=== PATIENT | male | born 1940 | race Caucasian/White ===

== ENCOUNTER 2017-10-15 10:05 | Emergency (ER) | payer MEDICARE ==
[~2017-10-15] VITALS: Ht 175.3 cm; Wt 61.1 kg
[~2017-10-15 10:05] MED LIST: TRAZ100T15 PO; TRAZ150T62 PO; ZOLP10TA PO
[2017-10-15 13:15] LABS: MICROSCOPIC INDICATED
[2017-10-15 13:26] LABS: CULTURE INDICATED? YES
[2017-10-15 14:02] VITALS: BP 122/75
== END 2017-10-15 14:04 | disposition home or self-care (01) ==
LOC: ED 11:26
DX: R31.0 Gross hematuria (principal); N30.01 Acute cystitis with hematuria; Z85.46 Personal history of malignant neoplasm of prostate
CPT/HCPCS: 81001; 87086; 99284

== ENCOUNTER 2018-12-29 11:34 | Emergency (ER) | payer MEDICARE ==
[~2018-12-29] VITALS: Ht 175.3 cm; Wt 61.0 kg
[~2018-12-29 11:34] MED LIST changes: +TRAZ-137 PO; -TRAZ100T15 PO
[2018-12-29 11:35] VITALS: BP 130/76
--- NOTE | 2018-12-29 11:50 | NUR ---
PT PRESENTING FOR BLOOD IN URINE WITH CLOTS AND PAINFUL URINATION X2 WEEKS. STATES HAD THIS HAPPEN LAST YEAR NEEDED SCHUMACHER PLACED AND NEVER FOLLOWED UP, HX OF TERP AND PROSTATE ISSUES. ALSO PT REPORTING INCREASED SOB X1 MONTH. STILL SMOKES ALSO HASNT F/U. CONNECTED TO MONITORING, VSS. CALL LIGHT WITHIN REACH. AWAITING ORDERS AT THIS TIME
--- NOTE | 2018-12-29 12:02 | NUR ---
UA COLLECTED AND SENT TO LAB. POST RESIDUAL 85ML. LAB AT BEDSIDE. TECH AT BEDSIDE TO EKG. AWAITING TESTING AND RESULTS AT THIS TIME. CALL LIGHT WITHIN REACH
[2018-12-29 12:11] LABS: BASOPHILS # (AUTO) 0.03 x10^3/uL (0-0.1); BASOPHILS % (AUTO) 0 % (0-1); EOSINOPHILS # (AUTO) 0.12 x10^3/uL (0-0.4); EOSINOPHILS % (AUTO) 1 % (1-7); LYMPHOCYTES # (AUTO) 1.01 x10^3/uL (1-3.4); LYMPHOCYTES % (AUTO) 12 % (22-44); MD NO; MEAN CORPUSCULAR HEMOGLOBIN 32.2 pg (27.5-34.5); MEAN CORPUSCULAR HGB CONC 33.6 g/dL (33.2-36.2); MEAN CORPUSCULAR VOLUME 95.7 fL (81-97); MEAN PLATELET VOLUME 6.8 fL (7.4-10.4); MONOCYTES # (AUTO) 0.76 x10^3/uL (0.2-0.8); MONOCYTES % (AUTO) 9 % (2-9); NEUTROPHILS # (AUTO) 6.63 x10^3/uL (1.8-6.8); NEUTROPHILS % (AUTO) 78 % (42-75); PLATELET COUNT 327 x10^3/uL (130-400); RED BLOOD COUNT 4.89 x10^6/uL (4.38-5.82); RED CELL DISTRIBUTION WIDTH 13.5 % (9.4-14.8)
--- NOTE | 2018-12-29 12:16 | NUR ---
PT BACK FROM RAD
[2018-12-29 12:19] LABS: INTERNATIONAL NORMALIZED RATIO 1.02 (0.93-1.1); PROTHROMBIN TIME 10.7 Seconds (9.6-11.5)
[2018-12-29 12:20] LABS: ALBUMIN 3.8 g/dL (3.4-5.0); ANION GAP 5 mmol/L (5-15); CALCIUM 8.7 mg/dL (8.5-10.1); CHLORIDE 107 mmol/L (98-107); CREATININE 0.83 mg/dL (0.7-1.3)
[2018-12-29 12:27] LABS: MICROSCOPIC AUTO
[2018-12-29 12:31] LABS: CULTURE INDICATED? YES
--- NOTE | 2018-12-29 12:39 | NUR ---
ALL RESULTS BACK AT THIS TIME, CHART UP FOR RECHECK
--- NOTE | 2018-12-29 12:50 | NUR ---
MD TO BEDSIDE TO UPDATE PT ON POC
== END 2018-12-29 13:05 | disposition home or self-care (01) ==
LOC: ED 12:18
DX: N30.01 Acute cystitis with hematuria (principal); J43.9 Emphysema, unspecified; F17.200 Nicotine dependence, unspecified, uncomplicated
CPT/HCPCS: 36415; 71046; 80048; 81001; 82040; 83880; 85025; 85610; 85730; 87086; 93005; 99284

== ENCOUNTER 2019-01-07 18:38 | Emergency (ER) | payer MEDICARE ==
[2019-01-07 18:42] VITALS: BP 175/94
--- NOTE | 2019-01-07 18:50 | NUR ---
PT TO ROOM FROM LOBBY.
[2019-01-07 19:03] LABS: BASOPHILS # (AUTO) 0.03 x10^3/uL (0-0.1); BASOPHILS % (AUTO) 0 % (0-1); EOSINOPHILS # (AUTO) 0.29 x10^3/uL (0-0.4); EOSINOPHILS % (AUTO) 3 % (1-7); LYMPHOCYTES # (AUTO) 1.46 x10^3/uL (1-3.4); LYMPHOCYTES % (AUTO) 17 % (22-44); MD NO; MEAN CORPUSCULAR HEMOGLOBIN 32.6 pg (27.5-34.5); MEAN CORPUSCULAR HGB CONC 33.9 g/dL (33.2-36.2); MEAN CORPUSCULAR VOLUME 96.3 fL (81-97); MONOCYTES # (AUTO) 0.88 x10^3/uL (0.2-0.8); MONOCYTES % (AUTO) 11 % (2-9); NEUTROPHILS # (AUTO) 5.75 x10^3/uL (1.8-6.8); NEUTROPHILS % (AUTO) 68 % (42-75); PLATELET COUNT 350 x10^3/uL (130-400); RED BLOOD COUNT 4.95 x10^6/uL (4.38-5.82); RED CELL DISTRIBUTION WIDTH 13.7 % (9.4-14.8)
[2019-01-07 19:12] LABS: ALANINE AMINOTRANSFERASE 25 U/L (12-78); ALBUMIN 4.1 g/dL (3.4-5.0); ANION GAP 5 mmol/L (5-15); CALCIUM 8.8 mg/dL (8.5-10.1); CHLORIDE 108 mmol/L (98-107)
[2019-01-07 19:14] LABS: ALKALINE PHOSPHATASE 76 U/L (45-117); BILIRUBIN,TOTAL 0.3 mg/dL (0.2-1.0); TOTAL PROTEIN 7.9 g/dL (6.4-8.2)
[2019-01-07] MEDS ORDERED: LIDOCAINE 2%,20 ML JEL.PF.APP MM ONE (19:16)
--- NOTE | 2019-01-07 19:41 | NUR ---
SCHUMACHER PLACED PER ORDER. PT TOLERATED PROCEDURE WELL. POC DISCUSSED. UA TUBED TO LAB. PT GIVEN [facility] BLANKETS PER REQUEST.
[2019-01-07 19:53] LABS: MICROSCOPIC AUTO
--- NOTE | 2019-01-07 19:53 | NUR ---
PT TO CT NOW
[2019-01-07 19:54] LABS: CULTURE INDICATED? YES
== END 2019-01-07 21:48 ==
LOC: ED 21:45
DX: N40.1 Benign prostatic hyperplasia with lower urinary tract symptoms (principal); R33.8 Other retention of urine; R10.30 Lower abdominal pain, unspecified; J44.9 Chronic obstructive pulmonary disease, unspecified
CPT/HCPCS: 36415; 51702; 74176; 80053; 81001; 85025; 87086; 99284

== ENCOUNTER → 2019-02-18 | Outpatient (CLI) | payer MEDICARE ==
[~2019-02-18] MED LIST changes: +IPRA4AER INH; +TAMS-11 PO
[2019-02-18 08:56] LABS: MICROSCOPIC INDICATED
== END | disposition home or self-care (01) ==
LOC: STAR 07:23
PROVIDERS: ATTEND Urology
DX: Z01.818 Encounter for other preprocedural examination (principal); D41.4 Neoplasm of uncertain behavior of bladder; R82.998 Other abnormal findings in urine
CPT/HCPCS: 81001; 87086; 93005

== ENCOUNTER 2019-03-02 11:33 | Inpatient (IN) | payer MEDICARE ==
[2019-02-18 08:10] VITALS: BP 141/78
[~2019-03-02] VITALS: Ht 172.7 cm; Wt 63.6 kg
[2019-03-02] MEDS ORDERED: LACTATED RINGERS 1,000 ML IV SCH (12:26)
[2019-03-02 14:28] LABS: BASOPHILS # (AUTO) 0.02 x10^3/uL (0-0.1); BASOPHILS % (AUTO) 0 % (0-1); EOSINOPHILS # (AUTO) 0.44 x10^3/uL (0-0.4); EOSINOPHILS % (AUTO) 6 % (1-7); LYMPHOCYTES # (AUTO) 1.14 x10^3/uL (1-3.4); LYMPHOCYTES % (AUTO) 15 % (22-44); MD NO; MEAN CORPUSCULAR HGB CONC 33.2 g/dL (33.2-36.2); MEAN CORPUSCULAR VOLUME 96.4 fL (81-97); MEAN PLATELET VOLUME 7.1 fL (7.4-10.4); MONOCYTES % (AUTO) 9 % (2-9); NEUTROPHILS # (AUTO) 5.12 x10^3/uL (1.8-6.8); NEUTROPHILS % (AUTO) 69 % (42-75); PLATELET COUNT 267 x10^3/uL (130-400); RED BLOOD COUNT 4.96 x10^6/uL (4.38-5.82); RED CELL DISTRIBUTION WIDTH 13.3 % (9.4-14.8)
[2019-03-02] MEDS ORDERED: ALBUTEROL/IPRATROPIUM 2.5MG/0.5MG, 3 ML ONE (14:30)
[2019-03-02] MEDS: ALBUTEROL/IPRATROPIUM 2.5MG/0.5MG, 3 ML NPPB SCH ×2 (14:36→19:30)
[2019-03-02 14:41] LABS: ALANINE AMINOTRANSFERASE 16 U/L (12-78); ALBUMIN 3.8 g/dL (3.4-5.0); ANION GAP 9 mmol/L (5-15); CALCIUM 8.9 mg/dL (8.5-10.1); CHLORIDE 110 mmol/L (98-107)
[2019-03-02 14:47] LABS: BILIRUBIN,TOTAL 0.6 mg/dL (0.2-1.0); CREATININE 0.78 mg/dL (0.7-1.3); TOTAL PROTEIN 7.3 g/dL (6.4-8.2); TROPONIN I < 0.015 ng/mL (0.000-0.045)
[2019-03-02 14:50] LABS: ALKALINE PHOSPHATASE 69 U/L (45-117)
[2019-03-02 15:39] VITALS: BP 117/70
[2019-03-02] MEDS: NICOTINE 14MG/24 HR PATCH.TD24 TD SCH (15:59)
[2019-03-02] MEDS ORDERED: POLYETHYLENE GLYCOL 17 GM PACKET PO PRN (16:00)
[2019-03-02] MEDS ORDERED: ONDANSETRON 2MG/ML, 2ML IVPush PRN (16:00)
[2019-03-02] MEDS ORDERED: GUAIFENESIN/DM 200-20MG, 10ML UDC PO PRN (16:00)
[2019-03-02] MEDS ORDERED: ONDANSETRON ODT 4 MG PO PRN (16:00)
[2019-03-02] MEDS ORDERED: DOCUSATE 100 MG CAPSULE PO PRN (16:00)
[2019-03-02] MEDS: methylPREDNISolone SOD SUCC 125 MG/2 ML IVPush SCH (16:25)
[2019-03-02] MEDS: ENOXAPARIN 40 MG/0.4 ML SQ SCH (16:26)
[2019-03-02 19:07] LABS: TROPONIN I < 0.015 ng/mL (0.000-0.045)
[2019-03-02 19:33] VITALS: BP 105/62
[2019-03-02] MEDS: DOXYCYCLINE 100MG TABLET PO SCH (21:02)
[2019-03-02] MEDS: TRAZODONE 150MG TABLET PO SCH (21:02)
[2019-03-03] MEDS: methylPREDNISolone SOD SUCC 125 MG/2 ML IVPush SCH ×3 (00:26→16:21)
[2019-03-03 00:55] LABS: TROPONIN I < 0.015 ng/mL (0.000-0.045)
[2019-03-03 01:23] VITALS: BP 108/64
[2019-03-03 06:28] LABS: TROPONIN I < 0.015 ng/mL (0.000-0.045)
[2019-03-03] MEDS: ALBUTEROL/IPRATROPIUM 2.5MG/0.5MG, 3 ML NPPB SCH ×4 (06:51→19:21)
[2019-03-03 07:14] VITALS: BP 116/67
[2019-03-03] MEDS: DOXYCYCLINE 100MG TABLET PO SCH ×2 (08:19→20:43)
[2019-03-03] MEDS ORDERED: REGADENOSON 0.4 MG/5 ML SYRINGE ONE (08:46)
[2019-03-03 15:45] VITALS: BP 104/58
[2019-03-03] MEDS: ENOXAPARIN 40 MG/0.4 ML SQ SCH (16:00)
[2019-03-03] MEDS: NICOTINE 14MG/24 HR PATCH.TD24 TD SCH (16:00)
[2019-03-03] MEDS: ACETAMINOPHEN 325 MG TABLET PO PRN (17:26)
[2019-03-03 19:08] VITALS: BP 95/54
[2019-03-03] MEDS: TRAZODONE 150MG TABLET PO SCH (20:43)
[2019-03-03 20:44] VITALS: BP 109/57
[2019-03-04] MEDS: methylPREDNISolone SOD SUCC 125 MG/2 ML IVPush SCH ×3 (00:41→16:31)
[2019-03-04 00:48] VITALS: BP 135/62
[2019-03-04 06:14] LABS: ANION GAP 6 mmol/L (5-15); CALCIUM 8.6 mg/dL (8.5-10.1); CHLORIDE 108 mmol/L (98-107); CREATININE 1.01 mg/dL (0.7-1.3)
[2019-03-04 06:15] LABS: BASOPHILS % (AUTO) 0 % (0-1); EOSINOPHILS % (AUTO) 0 % (1-7); LYMPHOCYTES # (AUTO) 0.46 x10^3/uL (1-3.4); LYMPHOCYTES % (AUTO) 3 % (22-44); MD NO; MEAN CORPUSCULAR HEMOGLOBIN 32.3 pg (27.5-34.5); MEAN CORPUSCULAR HGB CONC 33.1 g/dL (33.2-36.2); MEAN CORPUSCULAR VOLUME 97.7 fL (81-97); MEAN PLATELET VOLUME 7.8 fL (7.4-10.4); MONOCYTES % (AUTO) 3 % (2-9); NEUTROPHILS # (AUTO) 13.86 x10^3/uL (1.8-6.8); NEUTROPHILS % (AUTO) 94 % (42-75); PLATELET COUNT 261 x10^3/uL (130-400); RED BLOOD COUNT 4.34 x10^6/uL (4.38-5.82); RED CELL DISTRIBUTION WIDTH 13.2 % (9.4-14.8)
[2019-03-04 07:45] VITALS: BP 111/57
[2019-03-04] MEDS: ALBUTEROL/IPRATROPIUM 2.5MG/0.5MG, 3 ML NPPB SCH ×4 (08:40→20:00)
[2019-03-04] MEDS: DOXYCYCLINE 100MG TABLET PO SCH ×2 (10:14→21:34)
[2019-03-04 14:59] VITALS: BP 118/64
[2019-03-04] MEDS: NICOTINE 14MG/24 HR PATCH.TD24 TD SCH (16:00)
[2019-03-04] MEDS: ENOXAPARIN 40 MG/0.4 ML SQ SCH (16:00)
[2019-03-04] MEDS ORDERED: MITOMYCIN INTVESIC ONE (16:00)
[2019-03-04] MEDS ORDERED: SODIUM CHLORIDE 0.9% INTVESIC ONE (16:00)
[2019-03-04] MEDS ORDERED: SUCCINYLCHOLINE 20 MG/ML, 10ML ONE (16:27)
[2019-03-04] MEDS ORDERED: FENTANYL PF 250 MCG/5ML ONE (16:27)
[2019-03-04] MEDS ORDERED: PROPOFOL 10 MG/ML, 20ML ONE (16:27)
[2019-03-04] MEDS ORDERED: ROCURONIUM 10MG/ML,5ML ONE (16:27)
[2019-03-04] MEDS ORDERED: HYDROmorphone 2 MG/ML, 1ML IVPush PRN (18:00)
[2019-03-04] MEDS ORDERED: ACETAMINOPHEN 325 MG TABLET PO PRN (18:00)
[2019-03-04] MEDS ORDERED: ONDANSETRON 2MG/ML, 2ML IV PRN (18:00)
[2019-03-04] MEDS ORDERED: OXYcodone 5 MG/5 ML ORAL.SOL UDC PO PRN (18:00)
[2019-03-04] MEDS ORDERED: FENTANYL PF 100 MCG/2ML IV PRN (18:00)
[2019-03-04] MEDS ORDERED: PROMETHAZINE 25 MG/ML, 1ML IV PRN (18:00)
[2019-03-04] MEDS ORDERED: ALBUTEROL/IPRATROPIUM 2.5MG/0.5MG, 3 ML NPPB PRN (18:00)
[2019-03-04] MEDS ORDERED: LABETALOL 5MG/ML, 20ML IV PRN (18:00)
[2019-03-04] MEDS ORDERED: hydrALAzine 20 MG/ML, 1ML IV PRN (18:00)
[2019-03-04] MEDS ORDERED: PHENYLEPHRINE 10 MG/ML ONE (18:01)
[2019-03-04] MEDS ORDERED: DEXAMETHASONE 4 MG/ML, 1ML ONE (18:21)
[2019-03-04] MEDS ORDERED: ONDANSETRON 2MG/ML, 2ML ONE (18:21)
[2019-03-04] MEDS ORDERED: CEFAZOLIN 1,000 MG ONE (18:21)
[2019-03-04] MEDS ORDERED: CIPROFLOXACIN/PMX 400MG/200ML 200 ML ONE (18:39)
[2019-03-04] MEDS ORDERED: SUGAMMADEX 200 MG/2 ML IVPush ONE (19:39)
[2019-03-04] MEDS ORDERED: HYDROmorphone 2 MG/ML, 1ML ONE (20:04)
[2019-03-04] MEDS ORDERED: OXYcodone 5 MG/5 ML ORAL.SOL UDC ONE (20:04)
[2019-03-04 21:00] VITALS: BP 117/70
[2019-03-04] MEDS: TRAZODONE 150MG TABLET PO SCH (21:00)
[2019-03-05] VITALS (7 sets, daily range): BP systolic 109–122; BP diastolic 62–67
[2019-03-05] MEDS: TRAZODONE 150MG TABLET PO SCH ×2 (00:33→20:19)
[2019-03-05] MEDS: methylPREDNISolone SOD SUCC 125 MG/2 ML IVPush SCH ×2 (01:03→08:35)
[2019-03-05 05:35] LABS: ANION GAP 5 mmol/L (5-15); BASOPHILS % (AUTO) 0 % (0-1); CALCIUM 8.3 mg/dL (8.5-10.1); CHLORIDE 108 mmol/L (98-107); EOSINOPHILS % (AUTO) 0 % (1-7); LYMPHOCYTES # (AUTO) 0.31 x10^3/uL (1-3.4); LYMPHOCYTES % (AUTO) 2 % (22-44); MD NO; MEAN CORPUSCULAR HEMOGLOBIN 31.9 pg (27.5-34.5); MEAN CORPUSCULAR HGB CONC 32.6 g/dL (33.2-36.2); MEAN CORPUSCULAR VOLUME 97.9 fL (81-97); MEAN PLATELET VOLUME 7.4 fL (7.4-10.4); MONOCYTES # (AUTO) 0.61 x10^3/uL (0.2-0.8); MONOCYTES % (AUTO) 4 % (2-9); NEUTROPHILS # (AUTO) 14.75 x10^3/uL (1.8-6.8); NEUTROPHILS % (AUTO) 94 % (42-75); PLATELET COUNT 261 x10^3/uL (130-400); RED BLOOD COUNT 4.42 x10^6/uL (4.38-5.82); RED CELL DISTRIBUTION WIDTH 13.5 % (9.4-14.8)
[2019-03-05 05:38] LABS: CREATININE 0.81 mg/dL (0.7-1.3)
[2019-03-05] MEDS: ALBUTEROL/IPRATROPIUM 2.5MG/0.5MG, 3 ML NPPB SCH ×4 (07:35→20:00)
[2019-03-05] MEDS: CIPROFLOXACIN 250 MG TABLET PO SCH ×2 (08:35→20:20)
[2019-03-05] MEDS: DOXYCYCLINE 100MG TABLET PO SCH ×2 (08:35→20:19)
[2019-03-05] MEDS ORDERED: PHENAZOPYRIDINE 200 MG TABLET PO PRN (12:00)
[2019-03-05] MEDS: NICOTINE 14MG/24 HR PATCH.TD24 TD SCH (16:00)
[2019-03-05] MEDS: methylPREDNISolone SOD SUCC 40 MG/ML IVPush SCH ×2 (17:46→23:34)
[2019-03-05] MEDS ORDERED: CIPROFLOXACIN 500 MG TABLET ONE (20:14)
[2019-03-05] MEDS: ACETAMINOPHEN 325 MG TABLET PO PRN (23:34)
[2019-03-06] MEDS: ALBUTEROL/IPRATROPIUM 2.5MG/0.5MG, 3 ML NPPB SCH (06:38)
[2019-03-06 08:00] VITALS: BP 123/67
[2019-03-06] MEDS ORDERED: CIPR250T27 PO (08:25)
[2019-03-06] MEDS ORDERED: ALBU2SYR3 PO (08:25)
[2019-03-06] MEDS ORDERED: PRED5TAB19 PO (08:25)
[2019-03-06] MEDS: methylPREDNISolone SOD SUCC 40 MG/ML IVPush SCH (08:59)
[2019-03-06] MEDS: CIPROFLOXACIN 250 MG TABLET PO SCH (09:00)
[2019-03-06] MEDS: DOXYCYCLINE 100MG TABLET PO SCH (09:00)
== END 2019-03-06 10:30 | disposition home or self-care (01) | DRG 668 ==
LOC: OUT 11:33 → ORIP 15:13 → 4EST 15:19 → DCLOUNGE 03-06 10:13
PROVIDERS: ADMIT Internal Medicine; ATTEND Urology
PROC: 0TCB8ZZ Extirpation of Matter from Bladder, Via Natural or Artificial Opening Endoscopic (ICD-10-PCS; 2019-03-04)
PROC: 0TBB8ZZ Excision of Bladder, Via Natural or Artificial Opening Endoscopic (ICD-10-PCS; principal; 2019-03-04 16:00)
DX: D49.4 Neoplasm of unspecified behavior of bladder (principal); J96.21 Acute and chronic respiratory failure with hypoxia; J44.1 Chronic obstructive pulmonary disease with (acute) exacerbation; E46 Unspecified protein-calorie malnutrition; N21.0 Calculus in bladder; F17.210 Nicotine dependence, cigarettes, uncomplicated; N40.1 Benign prostatic hyperplasia with lower urinary tract symptoms; R33.8 Other retention of urine; Z68.21 Body mass index [BMI] 21.0-21.9, adult
CPT/HCPCS: 36415; 71045; 78452; 80048; 80053; 82360; 83735; 84443; 84484; 85025; 88300; 88305; 93005; 93017; 93306; 94640; G0378; J0690; J0744; J1100; J1170; J1650; J2405; J2704; J2785; J3010; J7620; A9502; C9898; J0330; J2370; J2920; J2930; J9280

== ENCOUNTER 2019-04-12 11:52 | Outpatient (CLI) | payer MEDICARE ==
[~2019-04-12 11:52] MED LIST changes: +ALBU2SYR3 PO; +CIPR250T27 PO; +PRED5TAB19 PO
== END 2019-04-12 23:59 | disposition home or self-care (01) ==
LOC: CARD 11:52
PROVIDERS: ATTEND Physician Assistant Medical
DX: Z02.9 Encounter for administrative examinations, unspecified (principal)

== ENCOUNTER 2021-02-24 07:04 | Emergency (ER) | payer MEDICARE ==
[~2021-02-24] VITALS: Ht 175.3 cm; Wt 55.0 kg
[~2021-02-24 07:04] MED LIST changes: -TRAZ-137 PO; +TRAZ-175 PO
[2021-02-24 07:11] VITALS: BP 141/83
--- NOTE | 2021-02-24 07:24 | NUR ---
SEE TRIAGE. DURING ASSESSMENT, PT NOT CONCERNED WITH SOB HE IS WITH GETTING TRAZADONE PRESCRIPTION FOR INSOMNIA. PT STATES HE'S BEEN UNABLE TO KEEP A PMD (THEY MOVE OR CHANGE PRACTICE/INSURANCE). PT STATES HE HAS OXYGEN AND COPD MEDS THAT WORK WELL FOR HIM. PT PLACED ON ALL ROOM MONITORING, CALL LIGHT WITHIN REACH.
== END 2021-02-24 08:14 | disposition home or self-care (01) ==
LOC: ED 07:40
DX: J43.9 Emphysema, unspecified (principal); F51.01 Primary insomnia; Z76.0 Encounter for issue of repeat prescription; R94.31 Abnormal electrocardiogram [ECG] [EKG]; F17.200 Nicotine dependence, unspecified, uncomplicated
CPT/HCPCS: 93005; 99283

== ENCOUNTER 2021-04-07 07:06 | Emergency (ER) | payer MEDICARE ==
[~2021-04-07] VITALS: Ht 175.3 cm; Wt 55.6 kg
[2021-04-07 08:10] VITALS: BP 124/65
== END 2021-04-07 08:14 | disposition home or self-care (01) ==
LOC: ED 07:47
DX: J44.9 Chronic obstructive pulmonary disease, unspecified (principal); Z76.0 Encounter for issue of repeat prescription; Z87.891 Personal history of nicotine dependence
CPT/HCPCS: 99281

== ENCOUNTER 2021-05-12 07:06 | Emergency (ER) | payer MEDICARE ==
[~2021-05-12] VITALS: Ht 172.7 cm; Wt 57.0 kg
[2021-05-12 07:08] VITALS: BP 132/65
--- NOTE | 2021-05-12 08:16 | NUR ---
Patient given discharge instructions and they have confirmed that they understand the instructions. Patient ambulatory with steady gait. NAD, all questions answered appropriately, denies additional needs at this time. No personal belongings left in room after discharge.
== END 2021-05-12 08:17 | disposition home or self-care (01) ==
LOC: ED 07:36
DX: J44.9 Chronic obstructive pulmonary disease, unspecified (principal); Z76.0 Encounter for issue of repeat prescription; F51.01 Primary insomnia; F17.200 Nicotine dependence, unspecified, uncomplicated
CPT/HCPCS: 99281